=== PATIENT | male | born 1980 | race Caucasian/White ===

== ENCOUNTER 2021-08-17 17:54 | Outpatient (REF) | payer OTHER, SELFPAY ==
--- NOTE | ~2021-08-17 | MR_ITS ---
EXAMINATION: MR BRAIN WITHOUT AND WITH CONTRAST CLINICAL INFORMATION: Single seizure episode. COMPARISON: None. TECHNIQUE: Multiplanar, multisequence imaging of the brain was performed before and after the intravenous administration of 10 mL of Gadavist. FINDINGS: No diffusion abnormalities are identified to suggest an acute infarct. The ventricles are normal in size. No mass effect or midline shift is seen. Minimal scattered white matter signal changes visible which are nonspecific. There is question of a small 2 x 1.4 x 0.8 cm arachnoid cyst along the left frontal convexity superior to the sylvian fissure. On postcontrast imaging, there is no abnormal parenchymal or leptomeningeal enhancement. The hippocampi are normal in appearance without volume loss or signal abnormality. No focal cortical dysplasia or migrational abnormality is identified. The brainstem and cerebellum appear normal. The gradient refocused acquisition is normal. The craniovertebral junction, marrow signal, and midline structures are normal. The major intracranial flow voids at the level of the [place] are preserved. The dural venous sinus flow voids are maintained. The mastoid air cells are well aerated. Small retention cyst in the left maxillary sinus. MR/MR head/brain wo/w con IMPRESSION: No acute process. Minimal scattered white matter signal changes. No hippocampal pathology. No epileptogenic focus identified.
== END 2021-08-17 17:55 | disposition home or self-care (01) ==
LOC: HO.MRI 17:54
PROVIDERS: PCP Physician Assistant; Visit Provider Psychiatry & Neurology Neurology
DX: R56.9 Unspecified convulsions (principal)
CPT/HCPCS: 70553; A9585

== ENCOUNTER 2021-08-22 12:43 | Outpatient (REF) | payer OTHER, SELFPAY ==
--- NOTE | 2021-08-22 12:52 | EEG_ITS ---
This is a 16-channel EEG with an EKG lead. The patient is reported awake and drowsy during the tracing. Most of the EEGs include drowsiness. During wakefulness, background EEG rhythm is about 12 hertz 5-20 microvolt posteriorly and lower amplitude fast anteriorly. The patient transitioned into drowsiness with no significant abnormality. No sharp wave spikes or paroxysmal tendency noted. Cardiac lead does not reveal any significant abnormality. Photic stimulation does not produce any driving. Hypoventilation is not performed. IMPRESSION: No significant abnormality noted on this EEG. MD DEMI Buckner/JENNY / [id number]
== END 2021-08-22 12:44 | disposition home or self-care (01) ==
LOC: HO.NEURO 12:43
PROVIDERS: PCP Physician Assistant; Visit Provider Psychiatry & Neurology Neurology
DX: R41.82 Altered mental status, unspecified (principal)
CPT/HCPCS: 95816

== ENCOUNTER 2023-08-13 12:53 | Outpatient (REF) | payer OTHER, SELFPAY ==
--- NOTE | ~2023-08-13 | MR_ITS ---
EXAMINATION: MR LUMBAR SPINE WITHOUT CONTRAST CLINICAL INFORMATION: Back pain, right-sided sciatica, dorsalgia COMPARISON: None available. TECHNIQUE: MRI of the lumbar spine was obtained using routine sequences without the administration of intravenous contrast. FINDINGS: This examination assumes the presence of 5 lumbar type vertebral bodies. For the purposes of this examination, the L5-S1 intervertebral disc space is visualized on axial series 7 image 23. There are likely hypoplastic T12 ribs. The normal lumbar lordosis is preserved. Trace retrolisthesis of L3-L4. Lumbar vertebral body heights are maintained. No expansile or destructive osseous lesion. The conus medullaris and cauda equina nerve roots are unremarkable; the conus terminates at the level of L1-L2. L1-L2: No significant spinal canal or neural foraminal stenosis. L2-L3: No significant spinal canal or neural foraminal stenosis. Facet arthropathy. L3-L4: Disc bulge with right subarticular/foraminal disc protrusion. Facet arthropathy with ligamentum flavum redundancy. There is mild to moderate spinal canal stenosis with narrowing of the right lateral recess. The left neural foramen is patent. There is mild to moderate right neural foraminal stenosis with abutment of the exiting right L3 nerve root. L4-L5: Disc bulge and osteophytic ridging with central disc protrusion. Associated annular fissure is noted. Arthropathy ligamentum flavum redundancy. Mild spinal canal stenosis with narrowing of the lateral recesses and abutment of the descending L5 nerve roots. Mild left and [id number] right neural foraminal stenosis. L5-S1: Disc bulge with right subarticular disc protrusion. Facet arthropathy with ligamentum flavum redundancy. Asymmetric narrowing of the right lateral recess compressing the descending right S1 nerve root. Mild narrowing of the thecal sac. The descending left S1 nerve root is also abutted. The left neural foramen is patent. There is mild to moderate right neural foraminal stenosis. MR/MR lumbar spine wo con IMPRESSION: At L3-L4 there is a disc bulge with right subarticular/foraminal disc protrusion. Associated mild narrowing of the right lateral recess and [id number] right neural foraminal stenosis with exiting nerve root abutment. At L4-L5 there is a central disc protrusion with annular fissure. Mild spinal canal stenosis with narrowing of the lateral recesses abutting the descending L5 nerve roots. At L5-S1 there is a right subarticular disc protrusion which compresses the descending right S1 nerve root. There is additional abutment of the descending left S1 nerve root.
== END 2023-08-13 12:54 | disposition home or self-care (01) ==
LOC: HO.MRI 12:53
PROVIDERS: PCP Physician Assistant; Visit Provider Physician Assistant
DX: M54.9 Dorsalgia, unspecified (principal)
CPT/HCPCS: 72148